=== PATIENT | female | born 1995 | race Native Hawaiian/Other Pacific Islander ===

== ENCOUNTER 2020-05-19 16:49 | Emergency (ER) | payer OTHER ==
[~2020-05-19] VITALS: Ht 162.6 cm; Wt 97.1 kg
[2020-05-19 17:43] LABS: PLATELET COUNT 249 K/uL (152-353)
[2020-05-19 17:57] LABS: POTASSIUM 4.7 mmol/L (3.6-5.2)
[2020-05-19 18:33] VITALS: BP 139/97; TEMP 97.8
== END 2020-05-19 18:40 | disposition home or self-care (01) ==
LOC: ED 16:49
PROVIDERS: Hospitalist
DX: U07.1 COVID-19 (principal); J06.9 Acute upper respiratory infection, unspecified; F17.210 Nicotine dependence, cigarettes, uncomplicated
CPT/HCPCS: 36415; 80053; 85027; 87502; 87635; 87651; 99283; U0003

== ENCOUNTER 2020-11-17 09:59 | Emergency (ER) | payer OTHER ==
[2020-11-30 09:28] LABS: PLATELET COUNT 278 K/uL (152-353)
[2020-11-30 09:34] LABS: PARTIAL THROMBOPLASTIN TIME 23.4 SECONDS (24.5-33.6)
[2020-11-30 09:36] LABS: POTASSIUM 3.5 mmol/L (3.6-5.2)
== END 2020-11-17 21:40 | disposition other institution (70) ==
LOC: ED 09:59
PROVIDERS: Hospitalist
DX: T14.91XA Suicide attempt, initial encounter (principal); R45.851 Suicidal ideations; F32.9 Major depressive disorder, single episode, unspecified; R00.0 Tachycardia, unspecified; T43.622A Poisoning by amphetamines, intentional self-harm, initial encounter; T43.222A Poisoning by selective serotonin reuptake inhibitors, intentional self-harm, initial encounter; Z11.52 Encounter for screening for COVID-19; Y93.89 Activity, other specified; Y92.89 Other specified places as the place of occurrence of the external cause
CPT/HCPCS: 80053; 80307; 80320; 80329; 81000; 81025; 83690; 85027; 85610; 85730; 87088; 87635; 93005; 96360; 96374; 99285; J2405; U0003

== ENCOUNTER 2020-12-03 17:01 | Emergency (ER) | payer OTHER ==
[~2020-12-03] VITALS: Ht 162.6 cm; Wt 77.1 kg
[2020-12-03 17:12] VITALS: TEMP 99.5
[2020-12-03] MEDS ORDERED: TRILEPTAL150 MG PO (17:24)
[2020-12-03] MEDS ORDERED: METO25TA4 PO (17:25)
[2020-12-03] MEDS ORDERED: FLUOXETINE20 M1 PO (17:25)
[2020-12-03 20:01] VITALS: BP 117/72
== END 2020-12-03 20:02 | disposition home or self-care (01) ==
LOC: ED 17:01
DX: N39.0 Urinary tract infection, site not specified (principal)
CPT/HCPCS: 81000; 81025; 87077; 87086; 87088; 87186; 96372; 99283; J0696; J1885

== ENCOUNTER 2021-01-10 12:59 | Emergency (ER) | payer OTHER ==
[~2021-01-10] VITALS: Ht 162.6 cm; Wt 77.1 kg
[~2021-01-10 12:59] MED LIST: FLUOXETINE20 M1 PO; METO25TA4 PO; TRILEPTAL150 MG PO
[2021-01-10 15:00] VITALS: BP 119/76; TEMP 99.9
== END 2021-01-10 15:00 | disposition home or self-care (01) ==
LOC: ED 12:59
DX: N39.0 Urinary tract infection, site not specified (principal); Z20.822 Contact with and (suspected) exposure to COVID-19
CPT/HCPCS: 81000; 87077; 87086; 87088; 87186; 87635; 96372; 99283; J0696; U0003

== ENCOUNTER 2021-10-04 19:03 | Emergency (ER) | payer OTHER ==
[~2021-10-04] VITALS: Ht 162.6 cm; Wt 83.9 kg
[2021-10-04 19:43] LABS: PLATELET COUNT 244 K/uL (152-353)
[2021-10-04 20:00] VITALS: BP 106/68; TEMP 98
== END 2021-10-04 20:00 | disposition home or self-care (01) ==
LOC: ED 19:03
PROVIDERS: Emergency Medicine
DX: R42 Dizziness and giddiness (principal); Z3A.14 14 weeks gestation of pregnancy
CPT/HCPCS: 80048; 85027; 93005; 99284

== ENCOUNTER 2021-12-01 02:26 | Emergency (ER) | payer OTHER ==
[~2021-12-01] VITALS: Ht 162.6 cm; Wt 81.6 kg
[2021-12-01 02:54] LABS: PLATELET COUNT 267 K/uL (152-353)
[2021-12-01 03:01] LABS: POTASSIUM 3.1 mmol/L (3.6-5.2)
[2021-12-01 03:15] LABS: PARTIAL THROMBOPLASTIN TIME 21.4 SECONDS (24.5-33.6)
[2021-12-01 05:00] VITALS: BP 116/88; TEMP 97.9
== END 2021-12-01 05:00 | disposition short-term general hospital (02) ==
LOC: ED 02:26
PROVIDERS: Hospitalist
DX: O30.002 Twin pregnancy, unspecified number of placenta and unspecified number of amniotic sacs, second trimester (principal); F15.10 Other stimulant abuse, uncomplicated; Z11.52 Encounter for screening for COVID-19
CPT/HCPCS: 36415; 80053; 80307; 80320; 81002; 84702; 85027; 85610; 85730; 87635; 96360; 96374; 99284; J2405; U0003

== ENCOUNTER 2022-01-14 11:04 | Emergency (ER) | payer OTHER ==
[~2022-01-14] VITALS: Ht 162.6 cm; Wt 81.6 kg
[2022-01-14] MEDS ORDERED: 904272561 PO (12:20)
[2022-01-14 12:23] VITALS: BP 111/76; TEMP 98.9
== END 2022-01-14 12:28 | disposition home or self-care (01) ==
LOC: ED 11:04
DX: N39.0 Urinary tract infection, site not specified (principal); J20.9 Acute bronchitis, unspecified; Z20.822 Contact with and (suspected) exposure to COVID-19
CPT/HCPCS: 81002; 81015; 87088; 87502; 87635; 87651; 99283; U0003

== ENCOUNTER 2022-02-27 17:27 | Emergency (ER) | payer OTHER ==
[~2022-02-27] VITALS: Ht 162.6 cm; Wt 81.6 kg
[~2022-02-27 17:27] MED LIST changes: +904272561 PO
[2022-02-27 17:31] VITALS: BP 135/95; TEMP 97.2
== END 2022-02-27 18:11 | disposition home or self-care (01) ==
LOC: ED 17:27
DX: F41.8 Other specified anxiety disorders (principal)
CPT/HCPCS: 99282

== ENCOUNTER 2022-03-13 19:50 | Emergency (ER) | payer OTHER ==
[~2022-03-13] VITALS: Ht 162.6 cm; Wt 77.1 kg
[2022-03-13 20:45] LABS: PLATELET COUNT 352 K/uL (152-353)
[2022-03-13 20:56] LABS: POTASSIUM 3.4 mmol/L (3.6-5.2)
[2022-03-14 05:02] VITALS: BP 127/81; TEMP 98.2
== END 2022-03-14 05:02 | disposition other institution (70) ==
LOC: ED 19:50
PROVIDERS: Emergency Medicine
DX: F32.9 Major depressive disorder, single episode, unspecified (principal); Z11.52 Encounter for screening for COVID-19
CPT/HCPCS: 36415; 80053; 80307; 81002; 81025; 85027; 87635; 93005; 96360; 99284; U0003

== ENCOUNTER 2022-04-06 13:08 | Emergency (ER) | payer OTHER ==
[~2022-04-06] VITALS: Ht 162.6 cm; Wt 77.1 kg
[2022-04-06 13:12] VITALS: BP 126/86; TEMP 98.3
[2022-04-06 14:07] LABS: PLATELET COUNT 298 K/uL (152-353)
[2022-04-06 14:22] LABS: POTASSIUM 4.5 mmol/L (3.6-5.2)
== END 2022-04-06 16:34 | disposition home or self-care (01) ==
LOC: ED 13:08
PROVIDERS: Emergency Medicine Emergency Medical Services
DX: N23 Unspecified renal colic (principal); Z20.2 Contact with and (suspected) exposure to infections with a predominantly sexual mode of transmission
CPT/HCPCS: 80053; 80307; 81002; 85027; 87490; 87590; 96360; 96365; 96375; 99284; J0696; J1885; J2270; J2405; Q9963

== ENCOUNTER 2022-06-10 16:59 | Emergency (ER) | payer OTHER ==
[~2022-06-10] VITALS: Ht 162.6 cm; Wt 77.1 kg
[2022-06-10 17:00] VITALS: BP 135/88; TEMP 97.9
== END 2022-06-10 19:05 | disposition home or self-care (01) ==
LOC: ED 16:59
DX: M47.892 Other spondylosis, cervical region (principal); J32.3 Chronic sphenoidal sinusitis; F17.210 Nicotine dependence, cigarettes, uncomplicated; W18.39XA Other fall on same level, initial encounter; Y92.89 Other specified places as the place of occurrence of the external cause
CPT/HCPCS: 80307; 81002; 81025; 99283

== ENCOUNTER 2022-08-29 20:10 | Emergency (ER) | payer OTHER ==
[~2022-08-29] VITALS: Ht 162.6 cm; Wt 77.1 kg
[2022-08-29 20:10] VITALS: BP 159/114; TEMP 98.2
[2022-08-29 20:29] LABS: PLATELET COUNT 297 K/uL (152-353)
[2022-08-29 20:39] LABS: POTASSIUM 3.7 mmol/L (3.6-5.2)
== END 2022-08-29 20:56 | disposition home or self-care (01) ==
LOC: ED 20:10
PROVIDERS: Emergency Medicine
DX: Z53.21 Procedure and treatment not carried out due to patient leaving prior to being seen by health care provider (principal)
CPT/HCPCS: 36415; 80053; 85027; 99281

== ENCOUNTER 2022-08-30 12:18 | Emergency (ER) | payer OTHER ==
[~2022-08-30] VITALS: Ht 162.6 cm; Wt 68.0 kg
[2022-08-30 12:18] VITALS: BP 150/101; TEMP 97.5
== END 2022-08-30 12:44 | disposition home or self-care (01) ==
LOC: ED 12:18
DX: R51.9 Headache, unspecified (principal); Y04.2XXA Assault by strike against or bumped into by another person, initial encounter; Y92.512 Supermarket, store or market as the place of occurrence of the external cause
CPT/HCPCS: 36415; 96374; 99284

== ENCOUNTER 2022-10-12 20:20 | Emergency (ER) | payer OTHER | END 2022-10-12 20:25 | disposition home or self-care (01) | LOC: ED 20:20 | DX: Z53.21 Procedure and treatment not carried out due to patient leaving prior to being seen by health care provider (principal) | CPT/HCPCS: 99281 ==

== ENCOUNTER 2022-10-13 15:47 | Emergency (ER) | payer OTHER ==
[~2022-10-13] VITALS: Ht 162.6 cm; Wt 59.0 kg
[2022-10-13 15:47] VITALS: TEMP 98.2
[2022-10-13 16:13] LABS: PLATELET COUNT 329 K/uL (152-353)
[2022-10-13 16:19] LABS: POTASSIUM 3.4 mmol/L (3.6-5.2); SODIUM 141 mmol/L (136-145)
[2022-10-14 06:50] VITALS: BP 106/69
== END 2022-10-14 06:50 | disposition other institution (70) ==
LOC: ED 15:47
PROVIDERS: Emergency Medicine
DX: F31.9 Bipolar disorder, unspecified (principal); F19.10 Other psychoactive substance abuse, uncomplicated; N39.0 Urinary tract infection, site not specified; I10 Essential (primary) hypertension; N20.0 Calculus of kidney
CPT/HCPCS: 80053; 80143; 80179; 80307; 80320; 81000; 81025; 85027; 87077; 87086; 87088; 87185; 87186; 96360; 99285

== ENCOUNTER 2023-01-16 17:53 | Emergency (ER) | payer OTHER ==
[~2023-01-16] VITALS: Ht 162.6 cm; Wt 68.0 kg
[2023-01-16 18:30] VITALS: BP 119/84; TEMP 97.3
== END 2023-01-16 18:30 | disposition home or self-care (01) ==
LOC: ED 17:53
DX: K04.7 Periapical abscess without sinus (principal); R68.84 Jaw pain
CPT/HCPCS: 99281

== ENCOUNTER 2023-02-10 14:54 | Outpatient (CLI) | payer OTHER | END 2023-02-10 19:20 | disposition home or self-care (01) | LOC: US 14:54 | PROVIDERS: ATTEND Nurse Practitioner | DX: N64.4 Mastodynia (principal) | CPT/HCPCS: G0279 ==